=== PATIENT | female | born 1955 | race Caucasian/White ===

== ENCOUNTER 2016-06-24 12:34 | Inpatient (IN) | payer OTHER ==
[~2016-06-24] VITALS: Ht 167.6 cm; Wt 132.1 kg
[~2016-06-24 12:34] MED LIST: ADVAIR 100/501 DISK IH; ADVAIR HFA120 INHALA IH; ALDACTONE50 MG PO; AMBIEN10 MG PO; APRESOLINE25 MG PO; APRESOLINE50 M1 PO; APRESOLINE50 MG PO; Advair 100/50 Diskus IH; Advair HFA 115/21 IH; Aldactone PO; Ambien PO; Amoxicillin PO; Antivert PO; Apresoline PO; Augmentin PO; BACTERICIN30 GM TP; BENADRYL25 MG PO; BUMETANIDE1 MG PO; BUMEX2 MG PO; CALAN SR,COVER120 M1 PO; CALCIUM500 M4 PO; CARDIZEM CD,CA240 M1 PO; CARDIZEM LA240 MG PO; CARDIZEM120 MG PO; CEFDINIR300 MG PO; CEFTIN250 MG PO; CETIRIZINE HCL10 M2 PO; CLARITIN10 MG PO; CLEOCIN150 MG PO; CLEOCIN300 MG PO; COLACE100 MG PO; COUMADIN,JANTOV10 MG PO; COUMADIN2.5 MG PO; COUMADIN4 MG PO; COUMADIN5 MG PO; COUMADIN6 MG PO; COUMADIN7.5 MG PO; CYANOCOBALAM1000 MCG PO; CYMBALTA30 MG PO; Cardizem CD,Cartia X PO; Claritin,Alavart PO; Colace PO; Coreg PO; Coumadin,Jantoven PO; DEMADEX20 MG PO; DICLOXACILLIN500 MG PO; DIGITEK250 MC2 PO; DIGOX250 MCG PO; DIGOXIN125 MCG PO; DIGOXIN250 MCG PO; DILAUDID2 MG PO; DILTIAZEM 24HR240 MG PO; DUONEB 2.5-0.5 M3 ML AEROSOL; DUONEB 2.5-0.5 M3 ML IH; DuoNeb IH; Duragesic TD; FEOSOL325 MG PO; FEROSUL325 MG PO; FERROUS SULFAT325 MG PO; FLONASE16 G1 BOTH NARES; Ferrous Sulfate PO; Flonase BOTH NARES; GABAPENTIN300 MG PO; GLIPIZIDE XL10 MG PO; GLUCOPHAGE500 MG PO; GLUCOTROL XL10 MG PO; GLUCOTROL10 MG PO; HUMALOG MI100 UNIT/7 SQ; HYDRALAZINE HCL25 MG PO; HYDRALAZINE HCL50 MG PO; Hydrodiuril,Oretic,E PO; INR ON; JANTOVEN1 MG PO; JANTOVEN3 MG PO; JANUVIA100 MG PO; K-Dur PO; KLOR-CON M2020 MEQ PO; LASIX20 MG PO; LASIX40 MG PO; LASIX80 MG PO; LEVEMIR FL100 UNITS/ SC; LIDODERM 5% P1 PATCH TD; LISINOPRIL20 MG PO; LOPRESSOR100 M1 PO; LOTENSIN20 M1 PO; Lasix PO; Lopressor PO; METOCLOPRAMIDE10 MG PO; METOPROLOL TAR100 MG PO; MORPHINE SULFAT15 M1 PO; MSIR PO; MSIR15 MG PO; NEURONTIN300 MG PO; NOVOLIN,HU100 UNITS/ SC; NOVOLOG 10100 UNITS/ SC; NOVOLOG MI100 UNIT/4 SC; NOVOLOG MI100 UNIT/M SC; NOVOLOG PE100 UNITS/ SC; Naprosyn PO; Neurontin PO; Norvasc PO; NovoLIN N (NPH),Humu SC; OMNICEF300 MG PO; PANTOPRAZOLE SO40 MG PO; PEN-VEE K,VEET500 MG PO; PRAVACHOL40 MG PO; PRAVASTATIN SOD20 MG PO; PRAVASTATIN SOD40 MG PO; PREDNISONE5 MG PO; PRILOSEC OTC20 MG PO; PRILOSEC20 MG PO; PROAIR HFA8.5 GM IH; PROTONIX40 MG PO; Pravachol PO; PriLOSEC OTC PO; PriLOSEC PO; SERTRALINE HCL50 MG PO; SILDENAFIL20 MG PO; SPIRONOLACTONE50 MG PO; TRAMADOL HCL50 MG PO; TYLENOL EXTRA500 MG PO; TYLENOL REGULA325 MG PO; TYLOPHEN500 MG PO; Tylenol Extra Streng PO; VITAMIN D-32000 UNI1 PO; VITAMIN D2000 UNIT PO; VITAMIN D31000 UNIT PO; Vicodin,Norco 5/325 PO; Vitamin B-12 PO; WARFARIN SODIUM PO; ZANTAC150 MG PO; ZOFRAN4 MG PO; ZOLOFT50 M1 PO; ZOLOFT50 MG PO; Zestril,Prinivil PO; Zithromax PO; Zoloft PO; [UNRECOGNIZED DRUG - OTHER]; predniSONE PO
[2016-06-24 15:09] LABS: HEMATOCRIT 37.6 % (36.0-46.0); MCH 32.5 PG (29.0-34.0); MCV 95.4 FL (83-99); MEAN PLAT.VOLUME 9.5 uM^3 (9.5-12.4); PLATELET COUNT 299 K/uL (156-360); RBC DIS.WIDTH-CV 14.9 % (11.8-14.6); RBC DIS.WIDTH-SD 50.1 % (39-53); RED BLOOD COUNT 3.94 M/uL (3.80-5.20)
[2016-06-24 15:19] LABS: CHLORIDE 93 mEq/L (99-109); POTASSIUM 5.3 mEq/L (3.7-5.4); SODIUM 134 mEq/L (136-147)
[2016-06-24 15:21] LABS: GLUCOSE 373 mg/dL (70-99)
[2016-06-24 15:22] LABS: ANION GAP 13 MEQ/L (2-14)
[2016-06-24 15:24] LABS: GFR ESTIMATE (CALCULATED) 44 mL/min/
[2016-06-24 15:25] LABS: UREA NITROGEN (BUN) 23 mg/dL (9-23)
[2016-06-24 15:30] LABS: TROP-I INTERPRETATION NEGATIVE; TROPONIN-I 0.02 ng/mL (0.0-0.30)
[2016-06-24] MEDS ORDERED: NEURONTIN300 MG PO ×2 (16:57→16:58)
[2016-06-24] MEDS ORDERED: COUMADIN1 MG PO (17:00)
[2016-06-24] MEDS ORDERED: DIGITEK125 MC2 PO (17:00)
[2016-06-24] MEDS ORDERED: ULTRAM50 MG PO (17:02)
[2016-06-24] MEDS ORDERED: ALDACTONE50 MG PO ×2 (17:56)
[2016-06-24 18:36] LABS: INTER. NORMALIZED RATIO 3.6
[2016-06-24 18:54] LABS: PROTHROMBIN TIME 38.3 (9.2-11.2)
[2016-06-24 20:18] VITALS: BP 145/68
[2016-06-24 22:08] LABS: TROP-I INTERPRETATION NEGATIVE; TROPONIN-I < 0.01 ng/mL (0.0-0.30)
[2016-06-25] VITALS (9 sets, daily range): BP systolic 111–163; BP diastolic 57–81
[2016-06-25 00:39] LABS: CARBON DIOXIDE (BICARBONATE) 37.4 MEQ/L (20-31)
[2016-06-25 00:53] LABS: CHLORIDE 91 mEq/L (99-109); MAGNESIUM 1.6 mg/dL (1.3-2.7); SODIUM 133 mEq/L (136-147)
[2016-06-25 00:55] LABS: GLUCOSE 368 mg/dL (70-99)
[2016-06-25 00:56] LABS: ANION GAP 13 MEQ/L (2-14)
[2016-06-25 00:57] LABS: TOTAL BILIRUBIN 0.7 mg/dL (0.0-1.0)
[2016-06-25 00:58] LABS: ALKALINE PHOSPHATASE 70 IU/L (3-129)
[2016-06-25 00:59] LABS: GFR ESTIMATE (CALCULATED) 33 mL/min/
[2016-06-25 01:00] LABS: UREA NITROGEN (BUN) 25 mg/dL (9-23)
[2016-06-25 01:08] LABS: DIGOXIN 0.7 ng/mL (0.8-2.0)
[2016-06-25 02:01] LABS: POINT-OF-CARE METER ID UU13113700
[2016-06-25 06:22] LABS: TROP-I INTERPRETATION NEGATIVE; TROPONIN-I < 0.01 ng/mL (0.0-0.30)
[2016-06-25 10:43] LABS: ADD MIUA? YES; BILIRUBIN SMALL; BLOOD NEGATIVE; COLOR YELLOW ((YELLOW)); GLUCOSE (STRIP) NEGATIVE; KETONES NEGATIVE; LEUKOCYTES NEGATIVE; NITRITE NEGATIVE; PROTEIN (STRIP) NEGATIVE; SPECIFIC GRAVITY 1.013 (1.000-1.030)
[2016-06-25 10:53] LABS: BACTERIA 1+; CASTS NONE SEEN /LPF; CRYSTALS NONE SEEN; EPITHELIAL CELLS 1+; MUCUS NONE SEEN; PATHOLOGICAL CAST NONE SEEN; RED BLOOD CELLS 20-30 /HPF (0-5); SMALL ROUND CELL NONE SEEN; YEAST-LIKE CELL NONE SEEN
[2016-06-25 11:17] LABS: POINT-OF-CARE METER ID UU14174216
[2016-06-25 16:32] LABS: INTER. NORMALIZED RATIO 3.2; PROTHROMBIN TIME 33.5 (9.2-11.2)
[2016-06-26 03:13] VITALS: BP 141/67
[2016-06-26 06:37] LABS: HEMATOCRIT 35.9 % (36.0-46.0); MCH 31.4 PG (29.0-34.0); MCHC 32.3 G/DL (30.0-36.0); MEAN PLAT.VOLUME 9.6 uM^3 (9.5-12.4); PLATELET COUNT 262 K/uL (156-360); RBC DIS.WIDTH-CV 14.9 % (11.8-14.6); RBC DIS.WIDTH-SD 53.1 % (39-53); WHITE BLOOD COUNT 5.2 K/uL (4.1-10.2)
[2016-06-26 07:01] LABS: ALKALINE PHOSPHATASE 64 IU/L (3-129); ANION GAP 9 MEQ/L (2-14); CHLORIDE 93 MEQ/L (99-109); GFR ESTIMATE (CALCULATED) 44 mL/min/; GLUCOSE 299 mg/dL (70-99); POTASSIUM 3.9 MEQ/L (3.7-5.4); SAMPLE HEMOLYSIS CHECK 0; SAMPLE ICTERIC CHECK 0; SAMPLE LIPEMIA CHECK 0; SODIUM 134 MEQ/L (136-147); TOTAL BILIRUBIN 0.7 MG/DL (0.0-1.0); UREA NITROGEN (BUN) 29 mg/dL (9-23)
[2016-06-26 07:05] LABS: INTER. NORMALIZED RATIO 2.4; PROTHROMBIN TIME 25.6 (9.2-11.2)
[2016-06-26 07:22] VITALS: BP 137/69
[2016-06-26] MEDS ORDERED: CARDIZEM CD120 MG PO (09:11)
[2016-06-26 12:06] VITALS: BP 116/69
== END 2016-06-26 12:06 | disposition home or self-care (01) | DRG 308 ==
LOC: EME → EDBD 12:34 → EME 12:34 → EDOF 17:24 → 5WEST 19:38 → 4EAST 06-25 00:21 → 5WEST 06-25 00:21 → 4EAST 06-25 03:14
PROVIDERS: Emergency Medicine; Hospitalist; Internal Medicine; Physician Assistant Medical
DX: I48.2 Chronic atrial fibrillation (principal); I50.33 Acute on chronic diastolic (congestive) heart failure; I13.0 Hypertensive heart and chronic kidney disease with heart failure and stage 1 through stage 4 chronic kidney disease, or unspecified chronic kidney disease; J96.10 Chronic respiratory failure, unspecified whether with hypoxia or hypercapnia; N17.9 Acute kidney failure, unspecified; Z68.42 Body mass index [BMI] 45.0-49.9, adult; R07.89 Other chest pain; R79.1 Abnormal coagulation profile; N18.3 Chronic kidney disease, stage 3 (moderate); I27.2 Other secondary pulmonary hypertension; E11.22 Type 2 diabetes mellitus with diabetic chronic kidney disease; E11.65 Type 2 diabetes mellitus with hyperglycemia; E11.40 Type 2 diabetes mellitus with diabetic neuropathy, unspecified; E78.5 Hyperlipidemia, unspecified; J44.9 Chronic obstructive pulmonary disease, unspecified; G47.33 Obstructive sleep apnea (adult) (pediatric); I87.2 Venous insufficiency (chronic) (peripheral); M10.9 Gout, unspecified; F31.9 Bipolar disorder, unspecified; E66.01 Morbid (severe) obesity due to excess calories; Z99.81 Dependence on supplemental oxygen; Z88.5 Allergy status to narcotic agent; Z79.01 Long term (current) use of anticoagulants; I69.398 Other sequelae of cerebral infarction; R53.1 Weakness; Z91.19 Patient's noncompliance with other medical treatment and regimen
CPT/HCPCS: 71010; 80048; 80053; 80162; 81003; 82803; 82948; 83735; 83880; 84443; 84484; 85027; 85610; 87086; 93005; 93306; 94640; 94640 76; 94760; 94799; 99202; 99281; 99285; G0378; J1815; J1940; J7030

== ENCOUNTER 2017-03-01 08:51 | Inpatient (IN) | payer OTHER ==
[~2017-03-01] VITALS: Ht 167.6 cm; Wt 142.5 kg
[2017-03-01] VITALS (10 sets, daily range): BP systolic 104–139; BP diastolic 55–85
[~2017-03-01 08:51] MED LIST changes: +CARDIZEM CD120 MG PO; +COUMADIN1 MG PO; +DIGITEK125 MC2 PO; +ULTRAM50 MG PO
[2017-03-01 09:43] LABS: EOSINOPHIL (%) 0.5 % (0-5); HEMATOCRIT 39.4 % (36.0-46.0); IMMATURE GRANULOCYTE (%) 0.5 % (0.0-0.7); INSTRUMENT ABS NEUTROPHIL CT 7.3 K/uL; LYMPHOCYTE COUNT 0.4 K/uL (1.0-2.8); MCH 31.1 PG (29.0-34.0); MCHC 33.8 G/DL (30.0-36.0); MCV 92.1 FL (83-99); MEAN PLAT.VOLUME 9.7 uM^3 (9.5-12.4); MONOCYTE (%) 4.7 % (3-12); MONOCYTE COUNT 0.4 K/uL (0-0.8); NEUTROPHIL (%) 89.5 % (45-76); NEUTROPHIL COUNT 7.3 K/uL (1.8-6.4); PLATELET COUNT 235 K/uL (156-360); RBC DIS.WIDTH-SD 43.5 % (39-53); RED BLOOD COUNT 4.28 M/uL (3.80-5.20); WHITE BLOOD COUNT 8.2 K/uL (4.1-10.2)
[2017-03-01 09:48] LABS: INTER. NORMALIZED RATIO 3.4; PROTHROMBIN TIME 38.7 SEC (10.2-12.9)
[2017-03-01 09:50] LABS: PTT 37.2 SEC (25-37)
[2017-03-01 09:54] LABS: BASE EXCESS 9.3 mEq/L (-3 to +3); BICARBONATE 35.3 mEq/L (22-26); CARBOXY HGB 2.3 % (0-5); COMMENTS - BLOOD GASES C+; DEVICE NC; METHEMOGLOBIN 0.9 % (0-1.5); O2 FLOW 2 L/MIN; PCO2 52 mm Hg (35-45); PO2 60 mm Hg (80-100); SITE RR; TOTAL RESP RATE 16 resp/min; pH 7.44 (7.35-7.45)
[2017-03-01 09:57] LABS: CHLORIDE 85 mEq/L (99-109); POTASSIUM 4.3 mEq/L (3.7-5.4); SODIUM 135 mEq/L (136-147)
[2017-03-01 09:58] LABS: MAGNESIUM 1.5 mg/dL (1.3-2.7)
[2017-03-01 10:01] LABS: ANION GAP 18 MEQ/L (2-14)
[2017-03-01 10:02] LABS: TOTAL BILIRUBIN 1.2 mg/dL (0.0-1.0)
[2017-03-01 10:03] LABS: ALKALINE PHOSPHATASE 99 IU/L (3-129); GFR ESTIMATE (CALCULATED) 32 mL/min/
[2017-03-01 10:04] LABS: TROP-I INTERPRETATION NEGATIVE; TROPONIN-I 0.01 ng/mL (0.0-0.30)
[2017-03-01 10:05] LABS: UREA NITROGEN (BUN) 34 mg/dL (9-23)
[2017-03-01 10:06] LABS: CREATINE KINASE 31 IU/L (1-294); GLUCOSE 678 mg/dL (70-99); TOTAL CK 31 IU/L (1-294)
[2017-03-01 10:12] LABS: CK-MB 0.6 ng/mL (0.0-4.9)
[2017-03-01 11:43] LABS: ADD MIUA? YES; BILIRUBIN NEGATIVE; BLOOD SMALL; COLOR YELLOW ((YELLOW)); GLUCOSE (STRIP) >=500; KETONES 5; LEUKOCYTES NEGATIVE; NITRITE NEGATIVE; PROTEIN (STRIP) NEGATIVE; SPECIFIC GRAVITY 1.016 (1.000-1.030); UROBILINOGEN 0.2 MG/DL (0.2-1.0)
[2017-03-01 11:47] LABS: BACTERIA NONE SEEN /HPF; EPITHELIAL CELLS RARE /HPF; MUCUS NONE SEEN /LPF; RED BLOOD CELLS 0-5 /HPF (0-5); UCUL ADDED? NO; WHITE BLOOD CELLS 0-5 /HPF (0-5)
[2017-03-01 14:39] LABS: Estimated Average Glucose 255 mg/dL (70-123); HEMOGLOBIN A1c (GLYCOHEMOGLOB) 10.5 % HGB (Below 5.7)
[2017-03-01 16:10] LABS: POINT-OF-CARE METER ID UU13113747
[2017-03-01 16:10] LABS: POINT-OF-CARE METER ID UU13113731
[2017-03-01 16:10] LABS: POINT-OF-CARE METER ID UU13113747
[2017-03-01 16:22] LABS: METH RESISTANT S AUREUS PCR POSITIVE (NEGATIVE)
[2017-03-01 16:36] LABS: PROBE CHECK PASS
[2017-03-01 17:26] LABS: ANION GAP 14 MEQ/L (2-14); CHLORIDE 92 MEQ/L (99-109); POTASSIUM 3.6 MEQ/L (3.7-5.4); SAMPLE HEMOLYSIS CHECK 0; SAMPLE ICTERIC CHECK 0; SAMPLE LIPEMIA CHECK 0; SODIUM 136 MEQ/L (136-147)
[2017-03-01 17:33] LABS: GFR ESTIMATE (CALCULATED) 38 mL/min/; UREA NITROGEN (BUN) 35 mg/dL (9-23)
[2017-03-01 17:35] LABS: GLUCOSE 417 mg/dL (70-99)
[2017-03-01 18:05] LABS: POINT-OF-CARE METER ID UU13113731
[2017-03-01 19:02] LABS: POINT-OF-CARE METER ID UU13113731
[2017-03-01 20:07] LABS: POINT-OF-CARE METER ID UU13113731
[2017-03-01 20:35] LABS: ANION GAP 14 MEQ/L (2-14); CHLORIDE 94 MEQ/L (99-109); GFR ESTIMATE (CALCULATED) 38 mL/min/; GLUCOSE 347 mg/dL (70-99); POTASSIUM 3.7 MEQ/L (3.7-5.4); SAMPLE HEMOLYSIS CHECK 0; SAMPLE ICTERIC CHECK 0; SAMPLE LIPEMIA CHECK 0; SODIUM 139 MEQ/L (136-147); UREA NITROGEN (BUN) 35 mg/dL (9-23)
[2017-03-01 21:14] LABS: POINT-OF-CARE METER ID UU13113731
[2017-03-01 22:17] LABS: POINT-OF-CARE METER ID UU13113731
[2017-03-01 22:23] LABS: POINT-OF-CARE METER ID UU13113731
[2017-03-01 23:19] LABS: POINT-OF-CARE METER ID UU13113731
[2017-03-02] VITALS (18 sets, daily range): BP systolic 98–152; BP diastolic 57–96
[2017-03-02 00:17] LABS: POINT-OF-CARE METER ID UU13113731
[2017-03-02 01:19] LABS: POINT-OF-CARE METER ID UU13113731
[2017-03-02 01:25] LABS: POTASSIUM 4.3 mEq/L (3.7-5.4); SODIUM 138 mEq/L (136-147)
[2017-03-02 01:26] LABS: CHLORIDE 98 mEq/L (99-109)
[2017-03-02 01:27] LABS: GLUCOSE 243 mg/dL (70-99)
[2017-03-02 01:28] LABS: ANION GAP 16 MEQ/L (2-14)
[2017-03-02 01:31] LABS: GFR ESTIMATE (CALCULATED) 35 mL/min/
[2017-03-02 01:32] LABS: UREA NITROGEN (BUN) 34 mg/dL (9-23)
[2017-03-02 02:17] LABS: POINT-OF-CARE METER ID UU14162636
[2017-03-02 03:14] LABS: POINT-OF-CARE METER ID UU14162636
[2017-03-02 04:09] LABS: POINT-OF-CARE METER ID UU14162636
[2017-03-02 05:05] LABS: HEMATOCRIT 34.7 % (36.0-46.0); MCH 31.2 PG (29.0-34.0); MCHC 34.3 G/DL (30.0-36.0); MCV 91.1 FL (83-99); MEAN PLAT.VOLUME 10.1 uM^3 (9.5-12.4); PLATELET COUNT 203 K/uL (156-360); RBC DIS.WIDTH-CV 13.2 % (11.8-14.6); RBC DIS.WIDTH-SD 43.7 % (39-53); RED BLOOD COUNT 3.81 M/uL (3.80-5.20); WHITE BLOOD COUNT 12.8 K/uL (4.1-10.2)
[2017-03-02 05:19] LABS: CHLORIDE 101 mEq/L (99-109); SODIUM 139 mEq/L (136-147)
[2017-03-02 05:21] LABS: GLUCOSE 185 mg/dL (70-99)
[2017-03-02 05:22] LABS: ANION GAP 13 MEQ/L (2-14)
[2017-03-02 05:24] LABS: POTASSIUM 3.4 mEq/L (3.7-5.4)
[2017-03-02 05:25] LABS: GFR ESTIMATE (CALCULATED) 41 mL/min/
[2017-03-02 05:26] LABS: UREA NITROGEN (BUN) 33 mg/dL (9-23)
[2017-03-02 05:30] LABS: ALKALINE PHOSPHATASE 55 IU/L (3-129)
[2017-03-02 05:32] LABS: POINT-OF-CARE METER ID UU14162636
[2017-03-02 05:36] LABS: CHLORIDE 100 mEq/L (99-109); POTASSIUM 3.7 mEq/L (3.7-5.4); SODIUM 139 mEq/L (136-147)
[2017-03-02 05:37] LABS: GLUCOSE 179 mg/dL (70-99)
[2017-03-02 05:39] LABS: ANION GAP 15 MEQ/L (2-14)
[2017-03-02 05:41] LABS: GFR ESTIMATE (CALCULATED) 38 mL/min/
[2017-03-02 05:42] LABS: UREA NITROGEN (BUN) 34 mg/dL (9-23)
[2017-03-02 06:29] LABS: EOSINOPHIL (%) 0 % (0-5); IMMATURE GRANULOCYTE (%) 0.5 % (0.0-0.7); IMMATURE GRANULOCYTE COUNT 0.1 K/uL; INSTRUMENT ABS NEUTROPHIL CT 11.4 K/uL; LYMPHOCYTE COUNT 0.9 K/uL (1.0-2.8); MONOCYTE (%) 3.6 % (3-12); MONOCYTE COUNT 0.5 K/uL (0-0.8); NEUTROPHIL (%) 88.8 % (45-76); NEUTROPHIL COUNT 11.4 K/uL (1.8-6.4)
[2017-03-02 06:41] LABS: POINT-OF-CARE METER ID UU14162636
[2017-03-02 07:46] LABS: POINT-OF-CARE METER ID UU14162636
[2017-03-02 09:16] LABS: ANION GAP 11 MEQ/L (2-14); CHLORIDE 100 MEQ/L (99-109); GFR ESTIMATE (CALCULATED) 41 mL/min/; GLUCOSE 190 mg/dL (70-99); POTASSIUM 3.7 MEQ/L (3.7-5.4); SAMPLE HEMOLYSIS CHECK 0; SAMPLE ICTERIC CHECK 0; SAMPLE LIPEMIA CHECK 0; SODIUM 140 MEQ/L (136-147); UREA NITROGEN (BUN) 34 mg/dL (9-23)
[2017-03-02 09:23] LABS: POINT-OF-CARE METER ID UU14162636
[2017-03-02 09:58] LABS: MAGNESIUM 1.3 mg/dl (1.3-2.7)
[2017-03-02 10:12] LABS: INTER. NORMALIZED RATIO 3.5; PROTHROMBIN TIME 40.1 SEC (10.2-12.9)
[2017-03-02 10:15] LABS: PTT 37.1 SEC (25-37)
[2017-03-02 10:29] LABS: POINT-OF-CARE METER ID UU14162636
[2017-03-02 10:47] LABS: POINT-OF-CARE METER ID UU14162636
[2017-03-02 11:58] LABS: POINT-OF-CARE METER ID UU14162636
[2017-03-02 12:46] LABS: POINT-OF-CARE METER ID UU14162636
[2017-03-02 13:34] LABS: CHLORIDE 100 MEQ/L (99-109); GFR ESTIMATE (CALCULATED) 41 mL/min/; GLUCOSE 177 mg/dL (70-99); POTASSIUM 3.5 MEQ/L (3.7-5.4); SAMPLE HEMOLYSIS CHECK 0; SAMPLE ICTERIC CHECK 0; SAMPLE LIPEMIA CHECK 0; SODIUM 140 MEQ/L (136-147); UREA NITROGEN (BUN) 34 mg/dL (9-23)
[2017-03-02 13:35] LABS: ANION GAP 13 MEQ/L (2-14)
[2017-03-02 14:18] LABS: POINT-OF-CARE METER ID UU14162636
[2017-03-02 15:14] LABS: POINT-OF-CARE METER ID UU14162636
[2017-03-02 16:43] LABS: POINT-OF-CARE METER ID UU13113803
[2017-03-02 18:59] LABS: POINT-OF-CARE METER ID UU13113803
[2017-03-02 20:41] LABS: POINT-OF-CARE METER ID UU13113803
[2017-03-02 23:14] LABS: POINT-OF-CARE METER ID UU13113803
[2017-03-02 23:53] LABS: POINT-OF-CARE METER ID UU14174217
[2017-03-03] VITALS (22 sets, daily range): BP systolic 114–161; BP diastolic 74–134
[2017-03-03 02:51] LABS: POINT-OF-CARE METER ID UU13113803
[2017-03-03 05:16] LABS: POINT-OF-CARE METER ID UU13113803
[2017-03-03 05:47] LABS: BASE EXCESS -1.1 mEq/L (-3 to +3); BICARBONATE 21.8 mEq/L (22-26); CARBOXY HGB 1.6 % (0-5); COMMENTS - BLOOD GASES C+A+; DEVICE NC; METHEMOGLOBIN 1.3 % (0-1.5); O2 FLOW 3 L/MIN; PCO2 30 mm Hg (35-45); PO2 90 mm Hg (80-100); SITE RR; TOTAL RESP RATE 16 resp/min; pH 7.47 (7.35-7.45)
[2017-03-03 06:02] LABS: ALKALINE PHOSPHATASE 69 IU/L (3-129); ANION GAP 16 MEQ/L (2-14); CHLORIDE 95 MEQ/L (99-109); GFR ESTIMATE (CALCULATED) 41 mL/min/; POTASSIUM 3.6 MEQ/L (3.7-5.4); SAMPLE HEMOLYSIS CHECK 0; SAMPLE ICTERIC CHECK 0; SAMPLE LIPEMIA CHECK 0; SODIUM 135 MEQ/L (136-147); TOTAL BILIRUBIN 1.4 MG/DL (0.0-1.0); UREA NITROGEN (BUN) 37 mg/dL (9-23)
[2017-03-03 06:03] LABS: GLUCOSE 352 mg/dL (70-99); MAGNESIUM 1.8 mg/dl (1.3-2.7)
[2017-03-03 06:38] LABS: HEMATOCRIT 33.1 % (36.0-46.0); MCH 32.6 PG (29.0-34.0); MCHC 34.1 G/DL (30.0-36.0); MEAN PLAT.VOLUME 10.9 uM^3 (9.5-12.4); PLATELET COUNT 186 K/uL (156-360); RBC DIS.WIDTH-CV 13.3 % (11.8-14.6); RBC DIS.WIDTH-SD 47.1 % (39-53); RED BLOOD COUNT 3.47 M/uL (3.80-5.20); WHITE BLOOD COUNT 14.4 K/uL (4.1-10.2)
[2017-03-03 06:40] LABS: MCV 95.4 FL (83-99)
[2017-03-03 06:50] LABS: ABS NEUTROPHIL COUNT 12.8; ANISOCYTOSIS 1+; BAND NEUTROPHILS 23.9 % (0-8.0); EOSINOPHIL ABS CT 0; INSTRUMENT ABS NEUTROPHIL CT 12.7 K/uL; LYMPHOCYTES 8.5 % (15.0-45.0); MACROCYTES 1+; PLAT.SUFFICIENCY ADEQUATE; TEAR DROP CELLS 1+
[2017-03-03 12:07] LABS: BASE EXCESS 0.4 mEq/L (-3 to +3); BICARBONATE 23.1 mEq/L (22-26); CARBOXY HGB 1.7 % (0-5); COMMENTS - BLOOD GASES NAC+; DEVICE NC; METHEMOGLOBIN 1.3 % (0-1.5); O2 FLOW 2.5 L/MIN; PCO2 31 mm Hg (35-45); PO2 88 mm Hg (80-100); SITE RR; TOTAL RESP RATE 18 resp/min; pH 7.48 (7.35-7.45)
[2017-03-03 12:34] LABS: INTER. NORMALIZED RATIO 2.7; PROTHROMBIN TIME 30.3 SEC (10.2-12.9)
[2017-03-03 12:45] LABS: ALKALINE PHOSPHATASE 69 IU/L (3-129); ANION GAP 15 MEQ/L (2-14); CHLORIDE 95 MEQ/L (99-109); GFR ESTIMATE (CALCULATED) 44 mL/min/; POTASSIUM 3.8 MEQ/L (3.7-5.4); SAMPLE HEMOLYSIS CHECK 0; SAMPLE ICTERIC CHECK 0; SAMPLE LIPEMIA CHECK 0; SODIUM 135 MEQ/L (136-147); TOTAL BILIRUBIN 1.2 MG/DL (0.0-1.0); UREA NITROGEN (BUN) 39 mg/dL (9-23)
[2017-03-03 12:46] LABS: GLUCOSE 428 mg/dL (70-99)
[2017-03-03 14:51] LABS: POINT-OF-CARE METER ID UU13113803
[2017-03-03 15:49] LABS: POINT-OF-CARE METER ID UU13113803
[2017-03-03] MEDS ORDERED: WARFARIN SODIUM5 MG PO (16:21)
[2017-03-03 16:41] LABS: ALKALINE PHOSPHATASE 87 IU/L (3-129); ANION GAP 15 MEQ/L (2-14); CHLORIDE 96 MEQ/L (99-109); GFR ESTIMATE (CALCULATED) 41 mL/min/; GLUCOSE 343 mg/dL (70-99); POTASSIUM 3.9 MEQ/L (3.7-5.4); SAMPLE HEMOLYSIS CHECK 0; SAMPLE ICTERIC CHECK 0; SAMPLE LIPEMIA CHECK 0; SODIUM 134 MEQ/L (136-147); TOTAL BILIRUBIN 1.2 MG/DL (0.0-1.0); UREA NITROGEN (BUN) 39 mg/dL (9-23); VANCOMYCIN, TROUGH 35.8 MCG/ML (10-20)
[2017-03-03] MEDS ORDERED: ALLOPURINOL100 MG PO (16:43)
[2017-03-03 16:46] LABS: MAGNESIUM 2.4 mg/dl (1.3-2.7)
[2017-03-03 16:49] LABS: POINT-OF-CARE METER ID UU13113803
[2017-03-03 17:55] LABS: POINT-OF-CARE METER ID UU13113803
[2017-03-03 18:52] LABS: POINT-OF-CARE METER ID UU13113803
[2017-03-03 19:47] LABS: POINT-OF-CARE METER ID UU13113803
[2017-03-03 20:01] LABS: POINT-OF-CARE METER ID UU13113803
[2017-03-03 20:01] LABS: POINT-OF-CARE METER ID UU13113803
[2017-03-03 20:01] LABS: POINT-OF-CARE METER ID UU13113803
[2017-03-03 20:01] LABS: POINT-OF-CARE METER ID UU13113803
[2017-03-03 20:31] LABS: POINT-OF-CARE METER ID UU13113803
[2017-03-03 21:29] LABS: POINT-OF-CARE METER ID UU13113803
[2017-03-03 22:30] LABS: POINT-OF-CARE METER ID UU13113803
[2017-03-03 23:29] LABS: POINT-OF-CARE METER ID UU13113803
[2017-03-04] VITALS (24 sets, daily range): BP systolic 100–146; BP diastolic 57–106
[2017-03-04 00:30] LABS: POINT-OF-CARE METER ID UU13113803
[2017-03-04 01:20] LABS: CHLORIDE 98 mEq/L (99-109); POTASSIUM 3.3 mEq/L (3.7-5.4); SODIUM 134 mEq/L (136-147)
[2017-03-04 01:24] LABS: ANION GAP 15 MEQ/L (2-14)
[2017-03-04 01:25] LABS: TOTAL BILIRUBIN 0.8 mg/dL (0.0-1.0)
[2017-03-04 01:27] LABS: GFR ESTIMATE (CALCULATED) 44 mL/min/
[2017-03-04 01:28] LABS: UREA NITROGEN (BUN) 42 mg/dL (9-23)
[2017-03-04 01:31] LABS: POINT-OF-CARE METER ID UU14208751
[2017-03-04 01:37] LABS: ALKALINE PHOSPHATASE 86 IU/L (3-129); GLUCOSE 140 mg/dL (70-99); MAGNESIUM 2.1 mg/dL (1.3-2.7)
[2017-03-04 02:37] LABS: POINT-OF-CARE METER ID UU14208751
[2017-03-04 03:42] LABS: POINT-OF-CARE METER ID UU14208751
[2017-03-04 04:35] LABS: POINT-OF-CARE METER ID UU14208751
[2017-03-04 05:33] LABS: POINT-OF-CARE METER ID UU14208751
[2017-03-04 06:15] LABS: INTER. NORMALIZED RATIO 3.4; PROTHROMBIN TIME 39.8 SEC (10.2-12.9)
[2017-03-04 06:31] LABS: POINT-OF-CARE METER ID UU14208751
[2017-03-04 06:55] LABS: MAGNESIUM 2.2 mg/dl (1.3-2.7)
[2017-03-04 07:04] LABS: ALKALINE PHOSPHATASE 94 IU/L (3-129); ANION GAP 15 MEQ/L (2-14); CHLORIDE 97 MEQ/L (99-109); GFR ESTIMATE (CALCULATED) 44 mL/min/; GLUCOSE 123 mg/dL (70-99); POTASSIUM 3.5 MEQ/L (3.7-5.4); SAMPLE HEMOLYSIS CHECK 0; SAMPLE ICTERIC CHECK 0; SAMPLE LIPEMIA CHECK 0; SODIUM 135 MEQ/L (136-147); UREA NITROGEN (BUN) 43 mg/dL (9-23)
[2017-03-04 07:05] LABS: TOTAL BILIRUBIN 0.9 MG/DL (0.0-1.0)
[2017-03-04 07:45] LABS: POINT-OF-CARE METER ID UU14208751
[2017-03-04 09:09] LABS: POINT-OF-CARE METER ID UU14208751
[2017-03-04 09:13] LABS: ALKALINE PHOSPHATASE 74 IU/L (3-129); ANION GAP 11 MEQ/L (2-14); CHLORIDE 98 MEQ/L (99-109); GFR ESTIMATE (CALCULATED) 44 mL/min/; GLUCOSE 165 mg/dL (70-99); POTASSIUM 3.3 MEQ/L (3.7-5.4); SAMPLE HEMOLYSIS CHECK 0; SAMPLE ICTERIC CHECK 0; SAMPLE LIPEMIA CHECK 0; SODIUM 134 MEQ/L (136-147); TOTAL BILIRUBIN 0.8 MG/DL (0.0-1.0); UREA NITROGEN (BUN) 43 mg/dL (9-23)
[2017-03-04 10:31] LABS: POINT-OF-CARE METER ID UU14208751
[2017-03-04 12:43] LABS: POINT-OF-CARE METER ID UU14208751
[2017-03-04 14:34] LABS: POINT-OF-CARE METER ID UU13113748
[2017-03-04 16:44] LABS: ALKALINE PHOSPHATASE 76 IU/L (3-129); ANION GAP 11 MEQ/L (2-14); CHLORIDE 97 MEQ/L (99-109); GFR ESTIMATE (CALCULATED) 41 mL/min/; GLUCOSE 181 mg/dL (70-99); MAGNESIUM 2.3 mg/dl (1.3-2.7); POTASSIUM 3.5 MEQ/L (3.7-5.4); SAMPLE HEMOLYSIS CHECK 0; SAMPLE ICTERIC CHECK 0; SAMPLE LIPEMIA CHECK 0; SODIUM 133 MEQ/L (136-147); TOTAL BILIRUBIN 0.8 MG/DL (0.0-1.0); UREA NITROGEN (BUN) 41 mg/dL (9-23)
[2017-03-04 16:53] LABS: VANCOMYCIN, TROUGH 16.1 MCG/ML (10-20)
[2017-03-04 16:59] LABS: POINT-OF-CARE METER ID UU14208751
[2017-03-04 21:07] LABS: ALKALINE PHOSPHATASE 74 IU/L (3-129); ANION GAP 11 MEQ/L (2-14); CHLORIDE 98 MEQ/L (99-109); GFR ESTIMATE (CALCULATED) 44 mL/min/; GLUCOSE 239 mg/dL (70-99); POTASSIUM 4.1 MEQ/L (3.7-5.4); SAMPLE HEMOLYSIS CHECK 1; SAMPLE ICTERIC CHECK 0; SAMPLE LIPEMIA CHECK 0; SODIUM 132 MEQ/L (136-147); TOTAL BILIRUBIN 0.8 MG/DL (0.0-1.0); UREA NITROGEN (BUN) 42 mg/dL (9-23)
[2017-03-04 22:47] LABS: POINT-OF-CARE METER ID UU13113748
[2017-03-05] VITALS (12 sets, daily range): BP systolic 109–150; BP diastolic 71–102
[2017-03-05 01:00] LABS: CHLORIDE 98 mEq/L (99-109); POTASSIUM 3.5 mEq/L (3.7-5.4); SODIUM 131 mEq/L (136-147)
[2017-03-05 01:02] LABS: GLUCOSE 267 mg/dL (70-99)
[2017-03-05 01:03] LABS: ANION GAP 13 MEQ/L (2-14)
[2017-03-05 01:06] LABS: ALKALINE PHOSPHATASE 84 IU/L (3-129); GFR ESTIMATE (CALCULATED) 38 mL/min/
[2017-03-05 01:07] LABS: UREA NITROGEN (BUN) 42 mg/dL (9-23)
[2017-03-05 01:10] LABS: TOTAL BILIRUBIN 0.6 mg/dL (0.0-1.0)
[2017-03-05 02:51] LABS: POINT-OF-CARE METER ID UU14208751
[2017-03-05 07:01] LABS: EOSINOPHIL COUNT 0.2 K/uL (0-0.3); HEMATOCRIT 31.6 % (36.0-46.0); IMMATURE GRANULOCYTE (%) 0.6 % (0.0-0.7); IMMATURE GRANULOCYTE COUNT 0.1 K/uL; INSTRUMENT ABS NEUTROPHIL CT 5.7 K/uL; LYMPHOCYTE COUNT 1.4 K/uL (1.0-2.8); MCHC 32.9 G/DL (30.0-36.0); MEAN PLAT.VOLUME 10.5 uM^3 (9.5-12.4); MONOCYTE (%) 7.3 % (3-12); MONOCYTE COUNT 0.6 K/uL (0-0.8); NEUTROPHIL (%) 72.5 % (45-76); NEUTROPHIL COUNT 5.7 K/uL (1.8-6.4); NRBC (%) 0.3 /100 WBC (0-0); PLATELET COUNT 212 K/uL (156-360); RED BLOOD COUNT 3.36 M/uL (3.80-5.20); WHITE BLOOD COUNT 7.9 K/uL (4.1-10.2)
[2017-03-05 07:19] LABS: MAGNESIUM 2.2 mg/dl (1.3-2.7)
[2017-03-05 07:23] LABS: ALKALINE PHOSPHATASE 82 IU/L (3-129); ANION GAP 10 MEQ/L (2-14); CHLORIDE 98 MEQ/L (99-109); GFR ESTIMATE (CALCULATED) 54 mL/min/; GLUCOSE 203 mg/dL (70-99); POTASSIUM 3.5 MEQ/L (3.7-5.4); SAMPLE HEMOLYSIS CHECK 0; SAMPLE ICTERIC CHECK 0; SAMPLE LIPEMIA CHECK 0; SODIUM 132 MEQ/L (136-147); TOTAL BILIRUBIN 0.7 MG/DL (0.0-1.0); UREA NITROGEN (BUN) 39 mg/dL (9-23)
[2017-03-05 07:25] LABS: ALKALINE PHOSPHATASE 79 IU/L (3-129); ANION GAP 9 MEQ/L (2-14); CHLORIDE 98 MEQ/L (99-109); GFR ESTIMATE (CALCULATED) 54 mL/min/; GLUCOSE 205 mg/dL (70-99); POTASSIUM 3.4 MEQ/L (3.7-5.4); SAMPLE HEMOLYSIS CHECK 0; SAMPLE ICTERIC CHECK 0; SAMPLE LIPEMIA CHECK 0; SODIUM 132 MEQ/L (136-147); TOTAL BILIRUBIN 0.7 MG/DL (0.0-1.0); UREA NITROGEN (BUN) 39 mg/dL (9-23)
[2017-03-05 07:40] LABS: INTER. NORMALIZED RATIO 4.9; PROTHROMBIN TIME 57.9 SEC (10.2-12.9)
[2017-03-05 09:10] LABS: POINT-OF-CARE METER ID UU14208751
[2017-03-05 09:32] LABS: ANION GAP 10 MEQ/L (2-14); CHLORIDE 99 MEQ/L (99-109); MAGNESIUM 2.2 mg/dl (1.3-2.7); POTASSIUM 3.5 MEQ/L (3.7-5.4); SAMPLE HEMOLYSIS CHECK 0; SAMPLE ICTERIC CHECK 0; SAMPLE LIPEMIA CHECK 0; SODIUM 133 MEQ/L (136-147); TOTAL BILIRUBIN 0.7 MG/DL (0.0-1.0)
[2017-03-05 09:37] LABS: ALKALINE PHOSPHATASE 78 IU/L (3-129); GFR ESTIMATE (CALCULATED) 54 mL/min/; GLUCOSE 203 mg/dL (70-99); UREA NITROGEN (BUN) 37 mg/dL (9-23)
[2017-03-05 12:59] LABS: POINT-OF-CARE METER ID UU13113803
[2017-03-05 15:58] LABS: POINT-OF-CARE METER ID UU14188577
[2017-03-06 03:38] VITALS: BP 141/70
[2017-03-06 06:32] LABS: POINT-OF-CARE METER ID UU14117124
[2017-03-06 08:14] VITALS: BP 138/94
[2017-03-06 09:32] LABS: INTER. NORMALIZED RATIO 4.1; PROTHROMBIN TIME 48.3 SEC (10.2-12.9)
[2017-03-06 11:50] VITALS: BP 146/67
[2017-03-06 16:32] VITALS: BP 163/82
[2017-03-06 19:58] VITALS: BP 146/78
[2017-03-06 21:59] LABS: POINT-OF-CARE METER ID UU14188577
[2017-03-06 23:29] VITALS: BP 142/82
[2017-03-07 03:37] VITALS: BP 154/82
[2017-03-07 06:53] LABS: POINT-OF-CARE METER ID UU14188577
[2017-03-07 06:54] LABS: INTER. NORMALIZED RATIO 3.3; PROTHROMBIN TIME 38.3 SEC (10.2-12.9)
[2017-03-07 07:01] LABS: HEMATOCRIT 31.1 % (36.0-46.0); MCH 32.5 PG (29.0-34.0); MCHC 33.8 G/DL (30.0-36.0); MCV 96.3 FL (83-99); MEAN PLAT.VOLUME 9.8 uM^3 (9.5-12.4); NRBC (%) 0.2 /100 WBC (0-0); RBC DIS.WIDTH-CV 13.2 % (11.8-14.6); RED BLOOD COUNT 3.23 M/uL (3.80-5.20); WHITE BLOOD COUNT 10.2 K/uL (4.1-10.2)
[2017-03-07 07:06] LABS: PLATELET COUNT 312 K/uL (156-360)
[2017-03-07 07:28] LABS: POINT-OF-CARE METER ID UU14188577
[2017-03-07 08:04] LABS: ALKALINE PHOSPHATASE 73 IU/L (3-129); ANION GAP 7 MEQ/L (2-14); CHLORIDE 102 MEQ/L (99-109); GFR ESTIMATE (CALCULATED) > 59 mL/min/; POTASSIUM 3.1 MEQ/L (3.7-5.4); SAMPLE HEMOLYSIS CHECK 0; SAMPLE ICTERIC CHECK 0; SAMPLE LIPEMIA CHECK 0; SODIUM 139 MEQ/L (136-147); TOTAL BILIRUBIN 0.6 MG/DL (0.0-1.0); UREA NITROGEN (BUN) 20 mg/dL (9-23)
[2017-03-07 08:08] LABS: GLUCOSE 43 mg/dL (70-99)
[2017-03-07 12:25] LABS: POINT-OF-CARE METER ID UU14208753
[2017-03-07 16:05] VITALS: BP 145/71
[2017-03-07 20:01] VITALS: BP 146/81
[2017-03-07 21:43] LABS: POINT-OF-CARE METER ID UU14208753
[2017-03-07 23:46] VITALS: BP 128/70
[2017-03-08 04:02] VITALS: BP 140/75
[2017-03-08 06:36] LABS: POINT-OF-CARE METER ID UU14117124
[2017-03-08 08:24] VITALS: BP 132/85
[2017-03-08 09:35] LABS: INTER. NORMALIZED RATIO 2.8; PROTHROMBIN TIME 31.6 SEC (10.2-12.9)
[2017-03-08 09:56] LABS: ALKALINE PHOSPHATASE 81 IU/L (3-129); ANION GAP 8 MEQ/L (2-14); CHLORIDE 102 MEQ/L (99-109); GFR ESTIMATE (CALCULATED) > 59 mL/min/; SAMPLE HEMOLYSIS CHECK 0; SAMPLE ICTERIC CHECK 0; SAMPLE LIPEMIA CHECK 0; SODIUM 135 MEQ/L (136-147); TOTAL BILIRUBIN 0.5 MG/DL (0.0-1.0); UREA NITROGEN (BUN) 16 mg/dL (9-23)
[2017-03-08 10:02] LABS: GLUCOSE 116 mg/dL (70-99)
[2017-03-08 10:03] LABS: POTASSIUM 4.1 MEQ/L (3.7-5.4)
[2017-03-08 12:15] VITALS: BP 144/86
[2017-03-08 12:24] LABS: POINT-OF-CARE METER ID UU14117124
[2017-03-08 17:05] VITALS: BP 144/70
[2017-03-08 17:15] LABS: POINT-OF-CARE METER ID UU14117124
[2017-03-08 17:45] LABS: POINT-OF-CARE METER ID UU14117124
[2017-03-08 19:31] VITALS: BP 133/97
[2017-03-09 00:05] VITALS: BP 142/82
[2017-03-09 04:05] VITALS: BP 135/75
[2017-03-09 07:02] LABS: POINT-OF-CARE METER ID UU14208753
[2017-03-09 09:10] LABS: HEMATOCRIT 32.1 % (36.0-46.0); MCH 31.6 PG (29.0-34.0); MCHC 32.4 G/DL (30.0-36.0); MCV 97.6 FL (83-99); MEAN PLAT.VOLUME 9.2 uM^3 (9.5-12.4); RBC DIS.WIDTH-CV 13.3 % (11.8-14.6); RBC DIS.WIDTH-SD 48.3 % (39-53); RED BLOOD COUNT 3.29 M/uL (3.80-5.20)
[2017-03-09 09:11] LABS: PLATELET COUNT 494 K/uL (156-360)
[2017-03-09 09:17] LABS: INTER. NORMALIZED RATIO 3.1; PROTHROMBIN TIME 35.2 SEC (10.2-12.9)
[2017-03-09 10:21] LABS: ALKALINE PHOSPHATASE 87 IU/L (3-129); ANION GAP 10 MEQ/L (2-14); CHLORIDE 103 MEQ/L (99-109); GFR ESTIMATE (CALCULATED) > 59 mL/min/; GLUCOSE 149 mg/dL (70-99); POTASSIUM 4.9 MEQ/L (3.7-5.4); SAMPLE HEMOLYSIS CHECK 0; SAMPLE ICTERIC CHECK 0; SAMPLE LIPEMIA CHECK 0; SODIUM 138 MEQ/L (136-147); TOTAL BILIRUBIN 0.6 MG/DL (0.0-1.0); UREA NITROGEN (BUN) 15 mg/dL (9-23)
[2017-03-09 11:26] LABS: POINT-OF-CARE METER ID UU14208753
[2017-03-09 15:36] VITALS: BP 140/75
[2017-03-09 16:47] LABS: POINT-OF-CARE METER ID UU14208753
[2017-03-09 19:35] VITALS: BP 134/93
[2017-03-09 21:30] LABS: POINT-OF-CARE METER ID UU14208753
[2017-03-09 23:17] VITALS: BP 127/77
[2017-03-10 04:08] VITALS: BP 122/60
[2017-03-10 06:43] LABS: POINT-OF-CARE METER ID UU14188577
[2017-03-10 07:30] VITALS: BP 134/97
[2017-03-10 09:52] LABS: INTER. NORMALIZED RATIO 3.3; PROTHROMBIN TIME 38.2 SEC (10.2-12.9)
[2017-03-10 10:04] LABS: ANION GAP 8 MEQ/L (2-14); CHLORIDE 99 MEQ/L (99-109); GFR ESTIMATE (CALCULATED) > 59 mL/min/; GLUCOSE 184 mg/dL (70-99); POTASSIUM 5.2 MEQ/L (3.7-5.4); SAMPLE HEMOLYSIS CHECK 0; SAMPLE ICTERIC CHECK 0; SAMPLE LIPEMIA CHECK 0; SODIUM 134 MEQ/L (136-147); UREA NITROGEN (BUN) 15 mg/dL (9-23)
[2017-03-10 11:34] LABS: POINT-OF-CARE METER ID UU14188577
[2017-03-10 11:47] VITALS: BP 122/72
[2017-03-10 15:15] VITALS: BP 138/77
[2017-03-10 19:41] VITALS: BP 139/73
[2017-03-10 22:15] LABS: POINT-OF-CARE METER ID UU14117124
[2017-03-10 23:48] VITALS: BP 111/75
[2017-03-11 06:33] LABS: INTER. NORMALIZED RATIO 2.8; PROTHROMBIN TIME 31.5 SEC (10.2-12.9)
[2017-03-11] MEDS ORDERED: METOPROLOL SUCC50 MG PO (06:52)
[2017-03-11] MEDS ORDERED: DILTIAZEM 24HR180 MG PO (06:53)
[2017-03-11 06:54] LABS: ALKALINE PHOSPHATASE 80 IU/L (3-129); ANION GAP 8 MEQ/L (2-14); CHLORIDE 99 MEQ/L (99-109); GFR ESTIMATE (CALCULATED) > 59 mL/min/; POTASSIUM 4.9 MEQ/L (3.7-5.4); SAMPLE HEMOLYSIS CHECK 0; SAMPLE ICTERIC CHECK 0; SAMPLE LIPEMIA CHECK 0; SODIUM 136 MEQ/L (136-147); TOTAL BILIRUBIN 0.5 MG/DL (0.0-1.0); UREA NITROGEN (BUN) 13 mg/dL (9-23)
[2017-03-11] MEDS ORDERED: HYDROCODON-ACE1 EAC7 PO (06:54)
[2017-03-11 06:55] LABS: GLUCOSE 77 mg/dL (70-99)
[2017-03-11] MEDS ORDERED: K-DUR20 MEQ PO (06:55)
[2017-03-11] MEDS ORDERED: TYLENOL REGULA325 MG PO (06:55)
[2017-03-11] MEDS ORDERED: BUMETANIDE1 MG PO (06:56)
[2017-03-11] MEDS ORDERED: LEVEMIR100 UNIT/2 SC (06:57)
[2017-03-11] MEDS ORDERED: POLYETHYLENE GL17 GM PO (06:57)
[2017-03-11 07:49] VITALS: BP 129/72
[2017-03-11] MEDS ORDERED: BACTRIM,SEPT1 TABLET PO (09:43)
[2017-03-11] MEDS ORDERED: CEPHALEXIN500 MG PO (09:44)
[2017-03-11 11:30] VITALS: BP 153/73
[2017-03-11 11:59] LABS: POINT-OF-CARE METER ID UU14208753
== END 2017-03-11 15:26 | DRG 871 ==
LOC: EME 08:51 → EDOF 13:28 → 4WEST 13:28 → ENRESERV 13:32 → 4WEST 14:25 → ENRESERV 03-05 07:42 → 4WEST 03-05 08:10 → ENRESERV 03-05 10:38 → 3EAST 03-05 13:37
PROVIDERS: Emergency Medicine; Internal Medicine; Specialist
DX: A41.9 Sepsis, unspecified organism (principal); L03.115 Cellulitis of right lower limb; E11.01 Type 2 diabetes mellitus with hyperosmolarity with coma; N17.9 Acute kidney failure, unspecified; E86.1 Hypovolemia; E87.6 Hypokalemia; G93.41 Metabolic encephalopathy; I13.0 Hypertensive heart and chronic kidney disease with heart failure and stage 1 through stage 4 chronic kidney disease, or unspecified chronic kidney disease; I50.32 Chronic diastolic (congestive) heart failure; N18.3 Chronic kidney disease, stage 3 (moderate); E11.22 Type 2 diabetes mellitus with diabetic chronic kidney disease; I27.2 Other secondary pulmonary hypertension; I27.81 Cor pulmonale (chronic); E66.01 Morbid (severe) obesity due to excess calories; Z68.42 Body mass index [BMI] 45.0-49.9, adult; G47.33 Obstructive sleep apnea (adult) (pediatric); I48.0 Paroxysmal atrial fibrillation; I48.1 Persistent atrial fibrillation; I48.2 Chronic atrial fibrillation; I87.2 Venous insufficiency (chronic) (peripheral); I89.0 Lymphedema, not elsewhere classified; J44.9 Chronic obstructive pulmonary disease, unspecified; J98.11 Atelectasis; M10.9 Gout, unspecified; G89.29 Other chronic pain; R09.02 Hypoxemia; M25.50 Pain in unspecified joint; M79.1 Myalgia; R00.0 Tachycardia, unspecified; E78.5 Hyperlipidemia, unspecified; F41.9 Anxiety disorder, unspecified; Z79.01 Long term (current) use of anticoagulants; Z79.4 Long term (current) use of insulin; Z82.49 Family history of ischemic heart disease and other diseases of the circulatory system; Z83.3 Family history of diabetes mellitus; Z86.73 Personal history of transient ischemic attack (TIA), and cerebral infarction without residual deficits; Z87.891 Personal history of nicotine dependence; Z91.19 Patient's noncompliance with other medical treatment and regimen; Z99.81 Dependence on supplemental oxygen
CPT/HCPCS: 36600; 71010; 80048; 80048 91; 80053; 80202; 81003; 82550; 82553; 82803; 82948; 83036; 83605; 83735; 83880; 84100; 84484; 85025; 85027; 85610; 85730; 87040; 87641; 93005; 94660; 94760; 94799; 97530 GO; 99281; 99285; A6212; C1753; J0690; J1815; J3370; J3475; J3480; J7030; J7050; S0028